=== PATIENT | female | born 1960 | race African-American/Black ===

== ENCOUNTER 2023-12-26 23:43 | Observation (INO) | payer MEDICARE, OTHER ==
[2023-12-26 23:50] LABS: Glucose,Whole Blood 287 mg/dL (70-110)
[2023-12-27] MEDS ORDERED: LORazepam 2 MG/ML INJ IV PRN ×2 (00:07)
--- NOTE | 2023-12-27 00:10 | ED ---
General Adult HPI - General Chief complaint: Recheck/Abnormal Lab/Rx Stated complaint: ABN Labs Time Seen by Provider: 12/26/23 23:52 Source: EMS Mode of arrival: EMS Limitations: no limitations - History of Present Illness Initial comments: Dictation was produced using [employer] dictation software. please excuse any grammatical, word or spelling errors. Chief Complaint: 63-year-old female sent from [facility] for hypoglycemia and multiple other complaints History of Present Illness: Patient 63-year-old female she just had been at [facility]. She checked in earlier today. She is there detoxing from heroin and alcohol. States that she drinks approximately 1 pint of liquor daily. States her last drink was around 8 AM this morning. States that she has been nauseous no vomiting. Patient complaining of abdominal leg and head pain. Patient has not attempted to tried to quit drinking in the past. Patient denies ever being hospitalized for alcohol withdrawal. The ROS documented in this emergency department record has been reviewed and confirmed by me. Those systems with pertinent positive or negative responses have been documented in the HPI. All other systems are other negative and/or noncontributory. - Related Data Allergies Allergy/AdvReac Type Severity Reaction Status Date / Time No Known Allergies Allergy Verified 12/26/23 23:55 Review of Systems ROS Statement: Those systems with pertinent positive or pertinent negative responses have been documented in the HPI. ROS Other: All systems not noted in ROS Statement are negative. General Exam - General Exam Comments Initial Comments: PHYSICAL EXAM: General Impression: Alert and oriented x3, tremulous HEENT: Normocephalic atraumatic, extra-ocular movements intact, pupils equal and reactive to light bilaterally, mucous membranes moist. Cardiovascular: Heart regular rate and rhythm Chest: Able to complete full sentences, no retractions, no tachypnea Abdomen: abdomen soft, non-tender, non-distended, no organomegaly Musculoskeletal: Pulses present and equal in all extremities, no peripheral edema Motor: no focal deficits noted Neurological: CN II-XII grossly intact, no focal motor or sensory deficits noted Skin: Intact with no visualized rashes Psych: Normal affect and mood Limitations: no limitations Course Vital Signs 12/26/23 23:47 Temperature 97.9 F Pulse Rate 86 Respiratory 18 Rate Blood Pressure 154/90 O2 Sat by Pulse 100 Oximetry Medical Decision Making - Medical Decision Making Was pt. sent in by a medical professional or institution (, PA, TOP WADDY, urgent care, hospital, or group home...) When possible be specific @ -No Did you speak to anyone other than the patient for history (EMS, parent, family, police, friend...)? What history was obtained from this source @ -No Did you review nursing and triage notes (agree or disagree)? Why? @ -I reviewed and agree with nursing and triage notes Were old charts reviewed (outside hosp., previous admission, EMS record, old EKG, old radiological studies, urgent care reports/EKG's, group home records)? Report findings @ -No old charts were reviewed Differential Diagnosis (chest pain, altered mental status, abdominal pain women, abdominal pain men, vaginal bleeding, musculoskeletal, weakness, fever, dyspnea, syncope, headache, dizziness, GI bleed, back pain, seizure, CVA, palpatations, mental health)? @ -Differential Weakness: Hypoglycemia, shock, sepsis, hyponatremia, anemia, infection, HI, ETOH, adverse medicine reaction, overdose, stroke, this is not meant to be an all-inclusive list. EKG interpreted by me (3pts min.). @ -See above X-rays interpreted by me (1pt min.). @ -None done CT interpreted by me (1pt min.). @ -None done U/S interpreted by me (1pt. min.). @ -None done What testing was considered but not performed or refused? (CT, X-rays, U/S, labs)? Why? @ -None What meds were considered but not given or refused? Why? @ -None Was smoking cessation discussed for >3mins.? @ -No Were there social determinants of health that impacted care today? How? (Homelessness, low income, unemployed, alcoholism, drug addiction, transportation, low edu. Level, literacy, decrease access to med. care, correction, rehab)? @ -Alcoholism, drug addiction Was there de-escalation of care discussed even if they declined (Discuss DNR or withdrawal of care, Hospice)? DNR status @ -No What co-morbidities impacted this encounter? (DM, HTN, Smoking, COPD, CAD, Cancer, CVA, ARF, Chemo, Hep., AIDS, mental health diagnosis, sleep apnea, morbid obesity)? @ -None Was patient admitted / discharged? Hospital course, mention meds given and route, prescriptions, significant lab abnormalities, going to OR and other pertinent info. @ -63-year-old female presents to the emergency department for clinical presentation concerning for EtOH withdrawal. Vital signs upon arrival are within acceptable limits. Patient tremulous at the bedside with systemic symptoms. Laboratory evaluation obtained. Metabolic panel shows elevated renal function. It is unclear what patient's baseline renal function is. Rest of labs within acceptable limits. Patient put on Ativan protocol will be admitted for treatment inpatient to treat alcohol withdrawal Did you discuss the management of the patient with other professionals (professionals i.e. , PA, [employer] W[employer]Y, lab, RT, psych nurse, social welfare administrator, butt sawyer, teacher, district resource officer, case management coordinator)? Give summary @ -No Was critical care preformed (if so, how long)? @ -No Undiagnosed new problem with uncertain prognosis? @ -No Drug Therapy requiring intensive monitoring for toxicity (Heparin, Nitro, Insulin, Cardizem)? @ -No Were any procedures done? @ -No Diagnosis/symptom? Acute, or Chronic, or Acute on Chronic? Uncomplicated (without systemic symptoms) or Complicated (systemic symptoms)? @ -Alcohol withdrawal Side effects of treatment? @ -No Exacerbation, Progression, or Severe Exacerbation? @ -No Poses a threat to life or bodily function? How? (Chest pain, USA, HI, pneumonia, PE, COPD, DKA, ARF, appy, cholecystitis, CVA, Diverticulitis, Homicidal, Suicidal, threat to staff... and all critical care pts) @ -Yes - Lab Data Result diagrams: 12/27/23 00:39 12/27/23 00:39 Lab Results 12/26/23 12/27/23 12/27/23 Range/Units 23:48 00:39 00:39 WBC 5.8 (3.8-10.6) k/uL RBC 5.08 (3.80-5.40) m/uL Hgb 14.3 (11.4-16.0) gm/dL Hct 43.5 (34.0-46.0) % MCV 85.6 (80.0-100.0) fL MCH 28.1 (25.0-35.0) pg MCHC 32.8 (31.0-37.0) g/dL RDW 12.6 (11.5-15.5) % Plt Count 167 (150-450) k/uL MPV 9.2 Neutrophils % 61 % Lymphocytes % 25 % Monocytes % 7 % Eosinophils % 5 % Basophils % 1 % Neutrophils # 3.5 (1.3-7.7) k/uL Lymphocytes # 1.5 (1.0-4.8) k/uL Monocytes # 0.4 (0-1.0) k/uL Eosinophils # 0.3 (0-0.7) k/uL Basophils # 0.0 (0-0.2) k/uL Sodium 134 L (137-145) mmol/L Potassium 4.3 (3.5-5.1) mmol/L Chloride 91 L (98-107) mmol/L Carbon Dioxide 30 (22-30) mmol/L Anion Gap 13 mmol/L BUN 19 H (7-17) mg/dL Creatinine 2.08 H (0.52-1.04) mg/dL Est GFR (CKD-EPI)AfAm 28 (>60 ml/min/1.73 sqM) Est GFR (CKD-EPI)NonAf 24 (>60 ml/min/1.73 sqM) Glucose 251 H (74-99) mg/dL POC Glucose (mg/dL) 287 H (70-110) mg/dL POC Glu Clerical Proofreader ID Heraclio Huber Calcium 10.6 H (8.4-10.2) mg/dL Magnesium 1.9 (1.6-2.3) mg/dL Total Bilirubin 0.5 (0.2-1.3) mg/dL AST 32 (14-36) U/L ALT 19 (4-34) U/L Alkaline Phosphatase 136 H (38-126) U/L Total Protein 8.9 H (6.3-8.2) g/dL Albumin 4.9 (3.5-5.0) g/dL Disposition Clinical Impression: Alcohol withdrawal Disposition: ADMITTED IP TO THIS HOSP Condition: Fair Referrals: None,Stated [Primary Care Provider] - 1-2 days Decision Time: 01:53
[2023-12-27] MEDS: SODIUM CHLORIDE 0.9% 1,000 ML IV STA (00:40)
[2023-12-27] MEDS: LORazepam 2 MG/ML INJ IV PRN (00:43)
[2023-12-27 01:18] LABS: ALT 19 U/L (4-34); AST 32 U/L (14-36); African American GFR (CKD) 28 (>60 ml/min/1.73 sqM); Albumin 4.9 g/dL (3.5-5.0); Alkaline Phosphatase 136 U/L (38-126); Anion Gap 13 mmol/L; Blood Urea Nitrogen 19 mg/dL (7-17); Calcium 10.6 mg/dL (8.4-10.2); Carbon Dioxide 30 mmol/L (22-30); Chloride 91 mmol/L (98-107); Glucose 251 mg/dL (74-99); Magnesium 1.9 mg/dL (1.6-2.3); Non-African American GFR(CKD) 24 (>60 ml/min/1.73 sqM); Potassium 4.3 mmol/L (3.5-5.1); Sodium 134 mmol/L (137-145); Total Bilirubin 0.5 mg/dL (0.2-1.3); Total Protein 8.9 g/dL (6.3-8.2)
[2023-12-27 01:22] LABS: Basophils % (A) 1 %; Eosinophils # (A) 0.3 k/uL (0-0.7); Eosinophils % (A) 5 %; HCT 43.5 % (34.0-46.0); HGB 14.3 gm/dL (11.4-16.0); Lymphocytes # (A) 1.5 k/uL (1.0-4.8); Lymphocytes % (A) 25 %; MCH 28.1 pg (25.0-35.0); MCHC 32.8 g/dL (31.0-37.0); MCV 85.6 fL (80.0-100.0); Mean Platelet Volume 9.2; Monocytes # (A) 0.4 k/uL (0-1.0); Monocytes % (A) 7 %; Neutrophils # (A) 3.5 k/uL (1.3-7.7); Neutrophils % (A) 61 %; Platelet Count 167 k/uL (150-450); RBC 5.08 m/uL (3.80-5.40); RDW 12.6 % (11.5-15.5); WBC 5.8 k/uL (3.8-10.6)
[2023-12-27] MEDS ORDERED: NALOXONE 0.4 MG/ML 1 ML VIAL IV PRN (01:51)
[2023-12-27] MEDS: SODIUM CHLORIDE 0.9% 1,000 ML IV SCH (02:59)
--- NOTE | 2023-12-27 03:56 | P.HPIM ---
History of Present Illness H&P Date: 12/27/23 Patient is a 63-year-old female with a PMH of alcohol abuse, type II DM, history of CVA, and noted past medical history who was sent in from [place] for alcohol withdrawal. Patient reports that she been drinking a pint of hard liquor daily for the past 4 to 5 years. She however denies history of alcohol withdrawal including DTs, withdrawal seizures, or ICU admission requiring IV Ativan. The patient presented earlier today at [place] was advised per to go to emergency room. Patient also lasted around 4 PM earlier today. She has no additional complaints at time of interview aside from feeling somewhat shaky. Denies experiencing chest discomfort or shortness of, telemetry, chronic nausea, vomiting, abdominal pain, diarrhea. EKG revealed sinus rhythm at [address]/T wave changes noted as reviewed by me. Laboratory evaluation was remarkable for WBC count 5.8, hemoglobin 14.3, sodium 134, chloride 91, BUN 19, creatinine 2.9, glucose 251. ED documentation reviewed and case discussed with ED provider. Review of systems: Pertinent positives and negatives as discussed in HPI, a complete review of systems was performed and all other systems are negative. Physical examination: Vital signs reviewed General: non toxic, no distress, appears at stated age, obese Derm: no unusual rashes/lesions, warm Head: atraumatic, normocephalic, symmetric Eyes: EOMI, no lid lag, anicteric sclera, pupils equal round reactive to light ENT: Nose and ears atraumatic Neck: No cervical lymphadenopathy, trachea midline, supple Mouth: no lip lesion, mucus membranes moist Cardiovascular: S1S2 reg, no murmur, positive dorsalis pedis pulse bilateral, no edema Lungs: CTA bilateral, no rhonchi, no rales, no accessory muscle use Abdominal: soft, nontender to palpation, no guarding Ext: muscle strength 5 out of 5 in all 4 extremities grossly, no gross muscle atrophy, no contractures, Neuro: CN II-XI grossly intact, no gross focal neuro deficits aside from R mild facial droop (chronic as per patient), outstretched hand tremor noted Psych: Alert, oriented, appropriate affect Assessment: Alcohol withdrawal Kidney injury, acute vs chronic Type 2 DM Imaging: EKG revealed sinus rhythm at [address]/T wave changes noted as reviewed by me. Data Review: Laboratory evaluation was remarkable for WBC count 5.8, hemoglobin 14.3, sodium 134, chloride 91, BUN 19, creatinine 2.9, glucose 251. Plan: Continue with Ativan as needed with CIWA protocol Cardiac monitoring Fall and seizure precautions Folic acid, thiamine, multivitamin C/w IVFs with NS 75 mL/hr Insulin sliding scale and blood glucose monitoring Monitor electrolytes daily DVT prophylaxis: Heparin subcu The patient is admitted with an anticipated greater than 2 midnight stay for evaluation of alcohol withdrawal CODE STATUS: Full Code Discussed with: Patient Anticipated discharge place: Home Past Medical History Past Medical History: Diabetes Mellitus Additional Past Medical History / Comment(s): Chronic pain and neuropathy. Reports possible high blood pressure History of Any Multi-Drug Resistant Organisms: None Reported Additional Past Surgical History / Comment(s): surgery on brain aneurysm Past Anesthesia/Blood Transfusion Reactions: No Reported Reaction Past Psychological History: No Psychological Hx Reported Smoking Status: Current every day smoker Past Alcohol Use History: Abuse, Daily Past Drug Use History: Heroin Additional Drug Use History / Comment(s): patient came from [place] thdrawl of etoh and heroin - Past Family History Father History Unknown: Yes Family Medical History: Hyperlipidemia Medications and Allergies Allergies Allergy/AdvReac Type Severity Reaction Status Date / Time No Known Allergies Allergy Verified 12/26/23 23:55 Physical Exam Vitals: Vital Signs Temp Pulse Pulse Resp BP BP Pulse Ox 12/27/23 03:08 98.6 F 92 19 166/92 100 12/27/23 02:58 90 18 151/91 99 12/26/23 23:47 97.9 F 86 18 154/90 100 Intake and Output 12/26/23 12/26/23 12/27/23 14:59 22:59 06:59 Other: Weight 107.955 kg Results CBC & Chem 7: 12/27/23 00:39 12/27/23 00:39 Labs: Abnormal Lab Results - Last 24 Hours (Table) 12/26/23 12/27/23 Range/Units 23:48 00:39 Sodium 134 L (137-145) mmol/L Chloride 91 L (98-107) mmol/L BUN 19 H (7-17) mg/dL Creatinine 2.08 H (0.52-1.04) mg/dL Glucose 251 H (74-99) mg/dL POC Glucose (mg/dL) 287 H (70-110) mg/dL Calcium 10.6 H (8.4-10.2) mg/dL Alkaline Phosphatase 136 H (38-126) U/L Total Protein 8.9 H (6.3-8.2) g/dL Thrombosis Risk Factor Assmnt - Choose All That Apply Any of the Below Risk Factors Present?: Yes Each Factor Represents 1 point: Swollen legs (current) Other Risk Factors: Yes Each Risk Factor Represents 2 Points: Age 61-74 years Other congenital or acquired thrombophilia - If yes, enter type in comment: No Thrombosis Risk Factor Assessment Total Risk Factor Score: 3 Thrombosis Risk Factor Assessment Level: Moderate Risk
[2023-12-27] MEDS: THIAMINE 100 MG/ML 2 ML VIAL IM ONE (04:30)
[2023-12-27 06:31] LABS: Glucose,Whole Blood 149 mg/dL (70-110)
[2023-12-27] MEDS: INSULIN ASPART (NovoLOG) 100 UNIT/ML VIAL SQ SCH (06:56)
[2023-12-27] MEDS: HEPARIN SODIUM,PORCINE 5,000 UNIT/ML 1 ML VIAL SQ SCH (09:29)
[2023-12-27] MEDS: FOLIC ACID 1 MG TAB PO SCH (09:30)
[2023-12-27] MEDS: THIAMINE 100 MG TAB PO SCH (09:30)
[2023-12-27] MEDS: MULTIVITAMINS, THERA 1 EACH TAB PO SCH (09:30)
[2023-12-27] MEDS: ACETAMINOPHEN TAB 325 MG TAB PO PRN (09:47)
[2023-12-27 12:09] LABS: Glucose,Whole Blood 219 mg/dL (70-110)
[2023-12-27] MEDS: amLODIPine 10 MG TAB PO SCH (12:18)
[2023-12-27] MEDS: atenoloL 50 MG TAB PO SCH (12:18)
[2023-12-27] MEDS: ASPIRIN 81 MG PO SCH (12:18)
[2023-12-27 16:55] LABS: Glucose,Whole Blood 219 mg/dL (70-110)
[2023-12-27] MEDS: INSULN ASP PRT/INSULIN ASPART 100 UNIT/ML 10 ML VIAL SQ SCH (17:19)
[2023-12-27] MEDS: GABAPENTIN 300 MG CAP PO SCH (17:20)
[2023-12-27 20:40] LABS: Glucose,Whole Blood 215 mg/dL (70-110)
[2023-12-27] MEDS: cloNIDine HCL 0.1 MG TAB PO PRN (21:09)
[2023-12-27] MEDS: ATORVASTATIN 40 MG TAB PO SCH (21:09)
[2023-12-27] MEDS: DOCUSATE 100 MG CAP PO SCH (21:09)
[2023-12-27] MEDS: FAMOTIDINE 20 MG TAB PO SCH (21:09)
[2023-12-27] MEDS: MELATONIN 5 MG TABLET PO SCH (21:09)
[2023-12-27] MEDS: INSULIN DETEMIR (LEVEMIR) 100 UNIT/ML SYR SQ SCH (21:10)
[2023-12-27] MEDS: MIRTAZAPINE 15 MG TAB PO SCH (21:10)
[2023-12-27] MEDS ORDERED: LORazepam 1 MG TAB PO PRN ×2 (21:56)
[2023-12-27] MEDS: LORazepam 1 MG TAB PO PRN (23:11)
[2023-12-28 07:02] LABS: Glucose,Whole Blood 85 mg/dL (70-110)
[2023-12-28 08:40] LABS: Basophils # (A) 0.03 X 10*3/uL (0.00-0.10); Basophils % (A) 0.5 %; Eosinophils # (A) 0.14 X 10*3/uL (0.04-0.35); Eosinophils % (A) 2.5 %; HCT 39.4 % (37.2-46.3); HGB 12.7 g/dL (12.0-15.0); Lymphocytes # (A) 1.58 X 10*3/uL (0.90-5.00); Lymphocytes % (A) 27.9 %; MCH 27.9 pg (27.0-32.0); MCHC 32.2 g/dL (32.0-37.0); MCV 86.4 FL (80.0-97.0); Mean Platelet Volume 12.5 FL (9.5-12.2); Monocytes # (A) 0.43 X 10*3/uL (0.20-1.00); Monocytes % (A) 7.6 %; NRBC Per 100 WBC 0 X 10*3/uL (0.00-0.01); Neutrophils # (A) 3.47 X 10*3/uL (1.80-7.70); Neutrophils % (A) 61.3 %; Platelet Count 177 X 10*3/uL (140-440); RBC 4.56 X 10*6/uL (4.10-5.20); RDW 12.5 % (11.5-14.5); WBC 5.66 X 10*3/uL (4.50-10.00)
[2023-12-28 08:51] LABS: BUN/Creat Ratio 9.12 Ratio (12.00-20.00); Blood Urea Nitrogen 14.6 mg/dL (9.0-27.0); Calcium 9.6 mg/dL (8.7-10.3); Carbon Dioxide 24.1 mmol/L (21.6-31.8); Chloride 103 mmol/L (96-109); Glucose 66 mg/dL (70-110); Magnesium 1.9 mg/dL (1.5-2.4); Potassium 3.4 mmol/L (3.5-5.5); Sodium 141 mmol/L (135-145)
[2023-12-28] MEDS: LORazepam 0.5 MG TAB PO PRN (09:08)
[2023-12-28 11:32] LABS: Glucose,Whole Blood 366 mg/dL (70-110)
--- NOTE | 2023-12-28 12:32 | P.PN ---
Subjective Progress Note Date: 12/28/23 Patient is a 63-year-old female with a PMH of alcohol abuse, type II DM, history of CVA, and noted past medical history who was sent in from [place] for alcohol withdrawal. Patient reports that she been drinking a pint of hard liquor daily for the past 4 to 5 years. She however denies history of alcohol withdrawal including DTs, withdrawal seizures, or ICU admission requiring IV Ativan. 12/27: admits to drinking 1 pint daily but only for a week. ciwa scores reviewed Objective - Vital Signs Vital signs: Vital Signs Temp 97.4 F L 12/28/23 07:17 Pulse 60 12/28/23 07:17 Resp 17 12/28/23 07:17 BP 147/70 12/28/23 07:17 Pulse Ox 100 12/28/23 07:17 FiO2 Intake & Output 12/27/23 12/28/23 12/28/23 18:59 06:59 18:59 Other: Voiding Method Toilet Toilet Toilet # Voids 2 2 - Exam General: non toxic, no distress, appears at stated age, obese Derm: no unusual rashes/lesions, warm Head: atraumatic, normocephalic, symmetric Eyes: EOMI, no lid lag, anicteric sclera, pupils equal round reactive to light ENT: Nose and ears atraumatic Neck: No cervical lymphadenopathy, trachea midline, supple Mouth: no lip lesion, mucus membranes moist Cardiovascular: S1S2 reg, no murmur, positive dorsalis pedis pulse bilateral, no edema Lungs: CTA bilateral, no rhonchi, no rales, no accessory muscle use Abdominal: soft, nontender to palpation, no guarding Ext: muscle strength 5 out of 5 in all 4 extremities grossly, no gross muscle atrophy, no contractures, Neuro: R facial droop moving all extremties spontanously Psych: Alert, oriented, appropriate affect - Labs CBC & Chem 7: 12/28/23 02:41 12/28/23 02:41 Labs: Abnormal Lab Results - Last 24 Hours (Table) 12/27/23 12/27/23 12/28/23 Range/Units 16:48 20:38 02:41 MPV 12.5 H (9.5-12.2) FL Potassium (3.5-5.5) mmol/L Anion Gap (4.00-12.00) mmol/L Creatinine (0.6-1.5) mg/dL Est GFR (CKD-EPI) (>=60) BUN/Creatinine Ratio (12.00-20.00) Ratio Glucose (70-110) mg/dL POC Glucose (mg/dL) 219 H 215 H (70-110) mg/dL 12/28/23 12/28/23 Range/Units 02:41 11:29 MPV (9.5-12.2) FL Potassium 3.4 L (3.5-5.5) mmol/L Anion Gap 13.90 H (4.00-12.00) mmol/L Creatinine 1.6 H (0.6-1.5) mg/dL Est GFR (CKD-EPI) 36 L (>=60) BUN/Creatinine Ratio 9.12 L (12.00-20.00) Ratio Glucose 66 L (70-110) mg/dL POC Glucose (mg/dL) 366 H (70-110) mg/dL Assessment and Plan Assessment: #) ETOH use disorder with etoh withdrawal. continue mvi, thiamine and folic acid support. add librium 20 mg TID taper x3 days. Continue ciwa with prn ativan. etoh cessation recomemended. consider naltrexone upon discharge #) SAI vs CKD with cr noted harrison 1.6. no prior cr to compare to. Check ua with microalbumin. Would recommend trending renal function outpatient. d/c ivf #) Dm2 on insulin- continue levemir 30 units nightly with sliding scale insulin #) hx of stroke with residual right facial droop- continue asa 81 mg daily and atorvastatin 40 mg hs gi ppx: pepcid dvt ppx: heparin (1) Alcohol withdrawal Current Visit: Yes Status: Acute Code(s): F10.939 - ALCOHOL USE, UNSPECIFIED WITH WITHDRAWAL, UNSPECIFIED SNOMED Code(s): 007854976 Time with Patient: Greater than 30
[2023-12-28 17:02] LABS: Glucose,Whole Blood 108 mg/dL (70-110)
[2023-12-28 20:42] LABS: Glucose,Whole Blood 113 mg/dL (70-110)
[2023-12-29 06:47] LABS: Glucose,Whole Blood 204 mg/dL (70-110)
[2023-12-29 08:25] LABS: Basophils # (A) 0.02 X 10*3/uL (0.00-0.10); Basophils % (A) 0.5 %; Eosinophils # (A) 0.02 X 10*3/uL (0.04-0.35); Eosinophils % (A) 0.5 %; HCT 43.3 % (37.2-46.3); HGB 13.8 g/dL (12.0-15.0); Lymphocytes # (A) 1.03 X 10*3/uL (0.90-5.00); Lymphocytes % (A) 25.9 %; MCH 27.4 pg (27.0-32.0); MCHC 31.9 g/dL (32.0-37.0); MCV 86.1 FL (80.0-97.0); Mean Platelet Volume 12.1 FL (9.5-12.2); Monocytes # (A) 0.23 X 10*3/uL (0.20-1.00); Monocytes % (A) 5.8 %; NRBC Per 100 WBC 0 X 10*3/uL (0.00-0.01); Neutrophils # (A) 2.66 X 10*3/uL (1.80-7.70); Platelet Count 138 X 10*3/uL (140-440); RBC 5.03 X 10*6/uL (4.10-5.20); RDW 12.6 % (11.5-14.5); WBC 3.97 X 10*3/uL (4.50-10.00)
[2023-12-29 09:30] LABS: ALT 14 U/L (8-44); AST 29 U/L (13-35); Albumin 3.5 g/dL (3.8-4.9); Albumin/Globulin Ratio 1.25 Ratio (1.60-3.17); Alkaline Phosphatase 95 U/L (41-126); BUN/Creat Ratio 8.92 Ratio (12.00-20.00); Blood Urea Nitrogen 10.7 mg/dL (9.0-27.0); Calcium 9.4 mg/dL (8.7-10.3); Carbon Dioxide 22.6 mmol/L (21.6-31.8); Chloride 102 mmol/L (96-109); Globulin 2.8 g/dL (1.6-3.3); Glucose 206 mg/dL (70-110); Potassium 4.5 mmol/L (3.5-5.5); Sodium 139 mmol/L (135-145); Total Bilirubin 0.3 mg/dL (0.3-1.2); Total Protein 6.3 g/dL (6.2-8.2)
[2023-12-29 11:30] LABS: Appearance,Urine Cloudy (Clear); Bilirubin,Urine Negative (Negative); Blood,Urine Negative (Negative); Color,Urine Yellow; Glucose,Urine (UA) 4+ (Negative); Ketones,Urine 1+ (Negative); Leukocyte Esterase,Urine Large (Negative); Mucus,Urine Rare /hpf; Nitrite,Urine Negative (Negative); Protein,Urine 1+ (Negative); RBC,Urine 2 /hpf (0-5); Specific Gravity,Urine 1.026 (1.001-1.035); Squamous Epithelial Cell,Urine 8 /hpf (0-4); WBC,Urine 12 /hpf (0-5)
[2023-12-29 11:38] LABS: Glucose,Whole Blood 174 mg/dL (70-110)
--- NOTE | 2023-12-29 15:30 | P.PN ---
Subjective Progress Note Date: 12/29/23 Hospital Course: 63-year-old female with a PMH of alcohol abuse, type II DM, history of CVA, and noted past medical history who was sent in from [place] for alcohol withdrawal. EKG revealed sinus rhythm at [address]/T wave changes noted as reviewed by me. Laboratory evaluation was remarkable for WBC count 5.8, hemoglobin 14.3, sodium 134, chloride 91, BUN 19, creatinine 2.9, glucose 251. Patient admitted for alcohol withdrawal symptoms. He was also found to have an SAI, resolving. Subjective: Patient seen and examined at bedside. No acute events overnight. Pertinent positives and negatives as discussed above, a complete review of systems was performed and all other systems are negative. Vitals Signs Reviewed. General: Nontoxic, no distress, appears at stated age Derm: Warm, dry Head: Atraumatic, normocephalic, symmetric Eyes: EOMI, no lid lag, anicteric sclera Mouth: No lip lesion, mucus membranes moist Cardiovascular: S1S2 reg, no murmur Lungs: CTA bilateral, no rhonchi, no rales, no accessory muscle use Abdominal: Soft, nontender to palpation, no guarding, no appreciable organomegaly Ext: No gross muscle atrophy, no edema, no contractures Neuro: CN II-XI grossly intact, no focal neuro deficits, extension tremor Psych: Alert, oriented, appropriate affect Data Reviewed Today: Pertinent Labs: WBC 3.97, hemoglobin 13.8, platelet 138, creatinine 1.2, potassium 4.5, glucose range between 113- 206 Imaging: No new imaging Assessment and Plan: Active: Alcohol dependence Alcohol withdrawal -Librium decreased to 10 mg 3 times daily, monitor for sedation -Continue oral Ativan as needed per CIWA score -Continue thiamine 100 mg daily, multivitamin daily Prerenal SAI, resolved -Continue to monitor urine output -Hold diuretics and NSAIDs and metformin Type 2 diabetes, insulin-dependent -Continue Levemir 30 units nightly, hold 70/30 insulin, sliding scale insulin ACH S, monitor for hypoglycemia -A1c pending Chronic: History of CVA Hypertension Depression DVT ppx: Subcu heparin Code status: Full code Anticipated discharge place: [place] Anticipated discharge time: 1 to 2 days Objective - Vital Signs Vital signs: Vital Signs Temp 98.2 F 12/29/23 01:08 Pulse 65 12/29/23 06:53 Resp 16 12/29/23 06:53 BP 141/85 12/29/23 06:53 Pulse Ox 100 12/29/23 06:53 FiO2 Intake & Output 12/28/23 12/29/23 12/29/23 18:59 06:59 18:59 Intake Total 240 Output Total 100 Balance 240 -100 Intake: Oral 240 Output: Urine 100 Other: Voiding Method Toilet Toilet # Voids 2 2 - Labs CBC & Chem 7: 12/29/23 05:56 12/29/23 05:56 Labs: Abnormal Lab Results - Last 24 Hours (Table) 12/28/23 12/29/23 12/29/23 Range/Units 20:38 05:56 05:56 WBC 3.97 L (4.50-10.00) X 10*3/uL MCHC 31.9 L (32.0-37.0) g/dL Plt Count 138 L (140-440) X 10*3/uL Eosinophils # 0.02 L (0.04-0.35) X 10*3/uL Anion Gap 14.40 H (4.00-12.00) mmol/L Est GFR (CKD-EPI) 50 L (>=60) BUN/Creatinine Ratio 8.92 L (12.00-20.00) Ratio Glucose 206 H (70-110) mg/dL POC Glucose (mg/dL) 113 H (70-110) mg/dL Albumin 3.5 L (3.8-4.9) g/dL Albumin/Globulin Ratio 1.25 L (1.60-3.17) Ratio Urine Appearance (Clear) Urine Protein (Negative) Urine Glucose (UA) (Negative) Urine Ketones (Negative) Ur Leukocyte Esterase (Negative) Urine WBC (0-5) /hpf Ur Squamous Epith Cells (0-4) /hpf Urine Mucus (None) /hpf 12/29/23 12/29/23 12/29/23 Range/Units 06:46 10:43 11:35 WBC (4.50-10.00) X 10*3/uL MCHC (32.0-37.0) g/dL Plt Count (140-440) X 10*3/uL Eosinophils # (0.04-0.35) X 10*3/uL Anion Gap (4.00-12.00) mmol/L Est GFR (CKD-EPI) (>=60) BUN/Creatinine Ratio (12.00-20.00) Ratio Glucose (70-110) mg/dL POC Glucose (mg/dL) 204 H 174 H (70-110) mg/dL Albumin (3.8-4.9) g/dL Albumin/Globulin Ratio (1.60-3.17) Ratio Urine Appearance Cloudy H (Clear) Urine Protein 1+ H (Negative) Urine Glucose (UA) 4+ H (Negative) Urine Ketones 1+ H (Negative) Ur Leukocyte Esterase Large H (Negative) Urine WBC 12 H (0-5) /hpf Ur Squamous Epith Cells 8 H (0-4) /hpf Urine Mucus Rare H (None) /hpf
[2023-12-29 16:44] LABS: Glucose,Whole Blood 276 mg/dL (70-110)
[2023-12-29] MEDS: GABAPENTIN 100 MG CAP PO SCH (17:06)
[2023-12-29 19:00] LABS: Estimated Average Glucose >470 mg/dL
[2023-12-29 20:27] LABS: Glucose,Whole Blood 182 mg/dL (70-110)
[2023-12-29] MEDS ORDERED: INSULIN DETEMIR (LEVEMIR) 100 UNIT/ML SYR SQ SCH (21:00)
[2023-12-29] MEDS: INSULIN DETEMIR (LEVEMIR) 100 UNIT/ML SYR SQ SCH (21:59)
[2023-12-30 06:58] LABS: Glucose,Whole Blood 108 mg/dL (70-110)
[2023-12-30 07:36] VITALS: BP 163/73; RESP 17; TEMP 98
[2023-12-30 08:06] VITALS: PULSE 73
[2023-12-30 08:54] LABS: BUN/Creat Ratio 10.18 Ratio (12.00-20.00); Blood Urea Nitrogen 11.2 mg/dL (9.0-27.0); Calcium 9.4 mg/dL (8.7-10.3); Carbon Dioxide 25.1 mmol/L (21.6-31.8); Chloride 102 mmol/L (96-109); Glucose 114 mg/dL (70-110); Potassium 4.1 mmol/L (3.5-5.5); Sodium 139 mmol/L (135-145)
[2023-12-30 09:01] LABS: Basophils # (A) 0.03 X 10*3/uL (0.00-0.10); Basophils % (A) 0.5 %; Eosinophils # (A) 0.06 X 10*3/uL (0.04-0.35); Eosinophils % (A) 1.1 %; HCT 43.3 % (37.2-46.3); HGB 14.3 g/dL (12.0-15.0); Lymphocytes # (A) 2.27 X 10*3/uL (0.90-5.00); MCH 27.6 pg (27.0-32.0); MCV 83.6 FL (80.0-97.0); Mean Platelet Volume 12.4 FL (9.5-12.2); Monocytes % (A) 7.1 %; NRBC Per 100 WBC 0 X 10*3/uL (0.00-0.01); Neutrophils # (A) 2.89 X 10*3/uL (1.80-7.70); Neutrophils % (A) 50.9 %; Platelet Count 174 X 10*3/uL (140-440); RBC 5.18 X 10*6/uL (4.10-5.20); RDW 12.6 % (11.5-14.5); WBC 5.67 X 10*3/uL (4.50-10.00)
[2023-12-30 11:17] LABS: Glucose,Whole Blood 93 mg/dL (70-110)
[2023-12-30 12:29] VITALS: BMI 37.3
--- NOTE | 2023-12-30 14:38 | P.DS ---
Providers Date of admission: 12/27/23 01:51 Expected date of discharge: 12/30/23 Attending physician: Nayan Noyola MD Primary care physician: Stated None Hospital Course: Discharge Diagnosis: Alcohol dependence Alcohol withdrawal Prerenal SAI Type 2 diabetes, insulin-dependent History of CVA Hypertension Depression Hospital Course: 63-year-old female with a PMH of alcohol abuse, type II DM, history of CVA, and noted past medical history who was sent in from [facility] for alcohol withdrawal. EKG revealed sinus rhythm at [address]/T wave changes noted as reviewed by me. Laboratory evaluation was remarkable for WBC count 5.8, hemoglobin 14.3, sodium 134, chloride 91, BUN 19, creatinine 2.9, glucose 251. Patient admitted for alcohol withdrawal symptoms. He was also found to have an SAI, resolving. Patient's A1c found to be greater than 18. I doubt that she is using her insulin as prescribed at home. She should not be on 70/30 insulin as well as long-acting. For now just continue long-acting insulin, sliding scale insulin along with metformin, needs close monitoring with PCP. Patient seen and examined at bedside. Vital signs reviewed and stable. General: Nontoxic, no distress, appears at stated age Derm: Warm, dry Head: Atraumatic, normocephalic, symmetric Eyes: EOMI, no lid lag, anicteric sclera Mouth: No lip lesion, mucus membranes moist Cardiovascular: S1S2 reg, no murmur Lungs: CTA bilateral, no rhonchi, no rales, no accessory muscle use Abdominal: Soft, nontender to palpation, no guarding, no appreciable organomegaly Ext: No gross muscle atrophy, no edema, no contractures Neuro: CN II-XI grossly intact, no focal neuro deficits Psych: Alert, oriented, appropriate affect A total of 36 minutes of time were spent preparing this complex discharge summary. Patient was discharged on 12/30/2023 1245. Patient Condition at Discharge: Stable Plan - Discharge Summary Discharge Rx Participant: No New Discharge Prescriptions: New Folic Acid 1 mg PO DAILY #90 tab Multivitamins, Thera [Multivitamin (formulary)] 1 each PO DAILY #90 tab Thiamine [Vitamin B-1] 100 mg PO DAILY #90 tab Continue Insulin Glargine [Lantus Vial] 30 units SQ HS Docusate [Colace] 200 mg PO HS Atorvastatin [Lipitor] 40 mg PO HS atenoloL [Tenormin] 50 mg PO DAILY amLODIPine [Norvasc] 10 mg PO DAILY cloNIDine HCL [Catapres] 0.1 mg PO Q4H PRN PRN Reason: Anxiety Loperamide HCl [Imodium A-D] 4 mg PO QID PRN MDD 16MG PRN Reason: LOOSE STOOLS Chlorpheniramine Maleate [Chlor-Trimeton] 4 mg PO Q4H PRN PRN Reason: WITHDRAWL SYMPTOMS/ALLERGIES Melatonin 10 mg PO HS Mirtazapine [Remeron] 15 mg PO HS Certavite 1 tab PO DAILY Insulin Regular, Human [NovoLIN R] See Protocol SQ TID-W/MEALS metFORMIN HCL [Glucophage] 500 mg PO BID Losartan [Cozaar] 50 mg PO DAILY Gabapentin 600 mg PO TID Famotidine 40 mg PO HS Aspirin [Adult Low Dose Aspirin EC] 81 mg PO DAILY Hyoscyamine Sulfate [Levsin] 0.125 mg PO QID PRN PRN Reason: WITHDRAWL SYMPTOMS/CRAMPS Calcium Phos/D3/Magnesium/Zinc [Qwylnom-Wzc-Ayye-Vitamin D3] 1 tab PO TID PRN PRN Reason: WITHDRAWL SYMPTOMS Discontinued Insulin NPH/Reg Insulin 70/30 [humuLIN 70/30 VIAL] 15 units SQ TID Furosemide [Lasix] 40 mg PO BID Sulfamethox-Tmp 800-160Mg [Bactrim DS 800-160 mg] 1 tab PO Q12HR Ibuprofen [Motrin Ib] 600 mg PO Q6H PRN PRN Reason: Pain Or Fever > 100.5 Discharge Medication List Aspirin [Adult Low Dose Aspirin EC] 81 mg PO DAILY 12/27/23 [History] Atorvastatin [Lipitor] 40 mg PO HS 12/27/23 [History] Calcium Phos/D3/Magnesium/Zinc [Yrikvcx-Wap-Riik-Vitamin D3] 1 tab PO TID PRN 12/27/23 [History] Certavite 1 tab PO DAILY 12/27/23 [History] Chlorpheniramine Maleate [Chlor-Trimeton] 4 mg PO Q4H PRN 12/27/23 [History] Docusate [Colace] 200 mg PO HS 12/27/23 [History] Famotidine 40 mg PO HS 12/27/23 [History] Gabapentin 600 mg PO TID 12/27/23 [History] Hyoscyamine Sulfate [Levsin] 0.125 mg PO QID PRN 12/27/23 [History] Insulin Glargine [Lantus Vial] 30 units SQ HS 12/27/23 [History] Insulin Regular, Human [NovoLIN R] See Protocol SQ TID-W/MEALS 12/27/23 [History] Loperamide HCl [Imodium A-D] 4 mg PO QID PRN MDD 16MG 12/27/23 [History] Losartan [Cozaar] 50 mg PO DAILY 12/27/23 [History] Melatonin 10 mg PO HS 12/27/23 [History] Mirtazapine [Remeron] 15 mg PO HS 12/27/23 [History] amLODIPine [Norvasc] 10 mg PO DAILY 12/27/23 [History] atenoloL [Tenormin] 50 mg PO DAILY 12/27/23 [History] cloNIDine HCL [Catapres] 0.1 mg PO Q4H PRN 12/27/23 [History] metFORMIN HCL [Glucophage] 500 mg PO BID 12/27/23 [History] Folic Acid 1 mg PO DAILY #90 tab 12/30/23 [Rx] Multivitamins, Thera [Multivitamin (formulary)] 1 each PO DAILY #90 tab 12/30/23 [Rx] Thiamine [Vitamin B-1] 100 mg PO DAILY #90 tab 12/30/23 [Rx] Follow up Appointment(s)/Referral(s): [facility] [NON-STAFF] - 1 Week None,Stated [Primary Care Provider] - 1-2 days Patient Instructions/Handouts: Alcohol Withdrawal (DC), Type 2 Diabetes in the Older Adult (DC) Activity/Diet/Wound Care/Special Instructions: Call [facility] at discharge for a ride: [phone] Please see PCP. Discharge Disposition: HOME SELF-CARE
== END 2023-12-30 14:28 | disposition home or self-care (01) ==
LOC: EC 23:43 → INTOOBSV 12-27 01:51 → 4SSUR 12-27 01:51
PROVIDERS: ADMIT Internal Medicine; ATTEND Internal Medicine
DX: F10.230 Alcohol dependence with withdrawal, uncomplicated (principal); E86.0 Dehydration; N17.9 Acute kidney failure, unspecified; E11.9 Type 2 diabetes mellitus without complications; I10 Essential (primary) hypertension; F32.A Depression, unspecified; F17.200 Nicotine dependence, unspecified, uncomplicated; Z86.73 Personal history of transient ischemic attack (TIA), and cerebral infarction without residual deficits
CPT/HCPCS: 96376; 96372 ×4; 96374; 99285; 36415 ×2; 93005; 36410; 76937; 80053 ×2; 80048 ×2; 83735 ×2; 85025 ×4; 81001; 87086; 82043; 82570; 83036; G0378 ×4; J2060; J1644 ×4; J3411; 96361